=== PATIENT | female | born 1990 | race African-American/Black ===

== ENCOUNTER 2017-03-07 16:40 | Emergency (ER) | payer OTHER ==
[~2017-03-07] VITALS: Ht 162.6 cm; Wt 54.4 kg
[2017-03-07 18:32] LABS: URINE BILIRUBIN NEGATIVE (Negative); URINE BLOOD 1+ (Negative); URINE COLOR YELLOW; URINE GLUCOSE-RANDOM* NEGATIVE (Negative); URINE KETONES 1+ (Negative); URINE LEUKOCYTES-REFLEX 1+ (Negative); URINE PROTEIN (DIPSTICK) TRACE (Negative); URINE SPECIFIC GRAVITY >= 1.030 (1.003-1.035); URINE UROBILINOGEN 0.2 E.U./dl (0.2-1.0)
[2017-03-07 18:38] LABS: CASTS None Seen /LPF (None Seen); CRYSTALS None Seen /LPF (None Seen); SQUAMOUS >10 Many /LPF (0-3)
[2017-03-07 18:39] LABS: URINE RBC 0-2 Rare /HPF (0-2); URINE WBC-REFLEX 6-15 Few /HPF (0-5)
[2017-03-07 18:55] LABS: ABSOLUTE NEUTROPHILS 3.7 thou/uL (1.4-8.2); BASOPHILS 0.4 % (0.0-2.0); EOSINOPHILS 0.5 % (0.0-3.0); HEMATOCRIT 43.2 % (37.0-47.0); HEMOGLOBIN 14.3 gm/dL (12.0-15.0); LYMPHOCYTES 9.4 % (24.0-44.0); MANUAL DIFF NO; MCH 28.1 pg (26.0-34.0); MCV 85.1 fL (80.0-100.0); MONOCYTES 5.3 % (1.0-8.0); PLATELET COUNT 189 thou/uL (150-400); POLYS 84.4 % (36.0-66.0); RBC 5.08 mil/uL (4.20-5.00); WBC 4.3 thou/uL (4.0-11.0)
[2017-03-07 19:03] LABS: CALCIUM 8.8 mg/dL (8.5-10.1); POTASSIUM 4.1 mmol/L (3.5-5.1)
[2017-03-07 19:07] LABS: ALBUMIN 4.3 g/dL (3.4-5.0); TOTAL BILIRUBIN 1.5 mg/dL (<0.1-1.0); TOTAL PROTEIN 8.2 g/dL (6.4-8.2)
[2017-03-07] MEDS ORDERED: ZOFRAN ODT8 MG PO (19:12)
[2017-03-07] MEDS ORDERED: DIFLUCAN150 MG PO (19:59)
[2017-03-07 20:07] VITALS: BP 112/63
== END 2017-03-07 19:13 | disposition home or self-care (01) ==
LOC: ER 16:40
PROVIDERS: Physician Assistant
DX: R19.7 Diarrhea, unspecified (principal); R11.2 Nausea with vomiting, unspecified; Z88.1 Allergy status to other antibiotic agents

== ENCOUNTER 2017-09-11 20:39 | Emergency (ER) | payer OTHER ==
[~2017-09-11] VITALS: Ht 162.6 cm; Wt 54.4 kg
[~2017-09-11 20:39] MED LIST: DIFLUCAN150 MG PO; ZOFRAN ODT8 MG PO
[2017-09-11] MEDS ORDERED: TRAMADOL 50 MG50 MG PO (21:04)
[2017-09-11] MEDS ORDERED: CYCLOBENZAPRINE5 MG PO (21:04)
[2017-09-11] MEDS ORDERED: HYDROCODONE-AP1 EAC6 PO (21:15)
== END 2017-09-11 21:28 | disposition home or self-care (01) ==
LOC: ER 20:39
DX: M54.2 Cervicalgia (principal); R51 Headache; Z88.1 Allergy status to other antibiotic agents; V89.0XXA Person injured in unspecified motor-vehicle accident, nontraffic, initial encounter; Y93.89 Activity, other specified; Y92.89 Other specified places as the place of occurrence of the external cause; Y99.8 Other external cause status

== ENCOUNTER 2019-08-08 14:55 | Emergency (ER) | payer OTHER ==
[~2019-08-08] VITALS: Ht 160 cm; Wt 59.0 kg
[~2019-08-08 14:55] MED LIST changes: +CYCLOBENZAPRINE5 MG PO; +HYDROCODONE-AP1 EAC6 PO; +TRAMADOL 50 MG50 MG PO
[2019-08-08] MEDS ORDERED: IBUPROFEN 600600 M1 PO (17:09)
[2019-08-08] MEDS ORDERED: TAMIFLU75 MG PO (17:09)
[2019-08-08 17:49] VITALS: BP 137/62
== END 2019-08-08 17:50 | disposition home or self-care (01) ==
LOC: ER 14:55
DX: J10.1 Influenza due to other identified influenza virus with other respiratory manifestations (principal); J45.909 Unspecified asthma, uncomplicated